=== PATIENT | female | born 1985 | race Caucasian/White ===

== ENCOUNTER 2019-07-19 08:23 | Outpatient (CLI) | payer MEDICAID ==
[2019-07-19 09:39] LABS: HGB - HEMOGLOBIN 10.6 g/dL (12.0-16.0); MEAN CORPUSCULAR HGB CONC 31.6 g/dL (32.0-36.0); MEAN CORPUSCULAR VOLUME 88.4 fL (81.0-99.0); MEAN PLATELET VOLUME 8.6 fL (7.9-10.8); RED BLOOD COUNT 3.79 10^6/uL (4.20-5.40); RED CELL DISTRIBUTION WIDTH 13.9 % (12.0-15.0)
== END 2019-07-19 08:24 | disposition home or self-care (01) ==
LOC: LAB 08:23
PROVIDERS: ATTEND Obstetrics & Gynecology
DX: Z36.89 Encounter for other specified antenatal screening (principal)
CPT/HCPCS: 36415; 82950; 85027

== ENCOUNTER 2019-09-10 08:00 | Outpatient (CLI) | payer MEDICAID ==
[2019-09-10 21:39] LABS: TRICHOMONAS VAGINALIS DNA NEGATIVE (NEGATIVE)
== END 2019-09-10 08:01 | disposition home or self-care (01) ==
LOC: LAB.R 08:00
PROVIDERS: ATTEND Obstetrics & Gynecology
DX: Z36.85 Encounter for antenatal screening for Streptococcus B (principal); Z11.3 Encounter for screening for infections with a predominantly sexual mode of transmission
CPT/HCPCS: 87491; 87591; 87661; 87797

== ENCOUNTER 2019-09-13 19:52 | Outpatient (CLI) | payer MEDICAID ==
[2019-09-13 21:17] VITALS: BP 114/64
[2019-09-13 21:24] LABS: RUPTURE OF MEMBRANES PLUS NEGATIVE (NEGATIVE)
--- NOTE | 2019-09-14 02:50 | PROVIDER PROGRESS NOTE ---
- HPI Chief Complaint: Other Current : Current EDU 10/13/19 Gestation 35 Weeks and 5 Days 1 Para 0 Vital Signs Temperature 97.7 F 09/13/19 20:03 Heart Rate 94 09/13/19 20:03 Respiratory Rate 18 09/13/19 20:03 Blood Pressure 114/64 09/13/19 20:03 O2 Saturation 100 09/13/19 20:03 Temperature 97.7 F 09/13/19 20:03 Heart Rate 94 09/13/19 20:03 Respiratory Rate 18 09/13/19 20:03 Blood Pressure 114/64 09/13/19 20:03 O2 Saturation 100 09/13/19 20:03 - Exam GEN: NAD CV: RR RESP: nml effort ABD: gravid, S&NT amnisure neg - Procedures OB Procedure Performed: Other (extended monitoring) Diagnosis/Indication for NST: Other (Patient is a 34 yo at 35w5d with abdominal tenderness Patient had been resting in bed on her side. Her 85# dog had jumped into bed next to her and allowed himself to fall on her abdomen. She was having abdominal pain and vaginal pressure and presented to assessment. No LOF other than one spot of fluid. No bleeding. Has been having mild intermittent ctx at baseline. Review of us reports indicate placenta is posterior) NST Procedure: NST Procedure Start Date 09/13/19 Start Time 20:06 Stop Time 20:44 Vibroacoustic Stimulation Used No Patient States Movement Yes EFM 120 mod freda 15x15 accels no decels TOCO: mild intermittent ctx CAT I tracing Service Date of procedure: 09/13/19 Procedure Details: Patient was observed in triage for over an hour Cat I tracing No continuing abdominal pain Neg amnisure Mott with mild intermittent contractions that diminished with frequency and intensity Reviewed risks of placental abruption (noting posterior placement of placenta) Minimal concern with mechanism of injury, clinical exam Cat I tracing Patient discharged to home with warning signs reviewed DOS: 09/13/2019 Final DX: mild blow to abdomen in , abdominal pain in
== END 2019-09-13 22:15 | disposition home or self-care (01) ==
LOC: WFO 19:52 → FBP 19:58 → WFO 22:15
PROVIDERS: ATTEND Obstetrics & Gynecology
DX: O99.89 Other specified diseases and conditions complicating pregnancy, childbirth and the puerperium (principal); R10.9 Unspecified abdominal pain; Z3A.35 35 weeks gestation of pregnancy
CPT/HCPCS: 59025; 84112

== ENCOUNTER 2019-10-05 16:14 | Outpatient (CLI) | payer MEDICAID ==
[2019-10-05 16:45] LABS: BASOPHILS % (AUTO) 0.2 %; EOSINOPHILS # (AUTO) 0.1 10^3/uL (0.0-0.7); EOSINOPHILS % (AUTO) 1.2 %; HGB - HEMOGLOBIN 11.3 g/dL (12.0-16.0); LYMPHOCYTES # (AUTO) 1.6 10^3/uL (1.5-3.5); LYMPHOCYTES % (AUTO) 19.6 %; MEAN CORPUSCULAR HEMOGLOBIN 27.4 pg (27.0-31.0); MEAN CORPUSCULAR HGB CONC 31.8 g/dL (32.0-36.0); MEAN CORPUSCULAR VOLUME 86.2 fL (81.0-99.0); MONOCYTES # (AUTO) 0.7 10^3/uL (0.0-1.0); MONOCYTES % (AUTO) 7.8 %; NEUTROPHILS # (AUTO) 5.7 10^3/uL (1.5-6.6); NEUTROPHILS % (AUTO) 68.9 %; PLT - PLATELET COUNT 163 10^3/uL (130-450); RED BLOOD COUNT 4.12 10^6/uL (4.20-5.40); RED CELL DISTRIBUTION WIDTH 14.5 % (12.0-15.0); WHITE BLOOD COUNT 8.3 x10^3/uL (4.8-10.8)
[2019-10-05 16:47] LABS: HCG UR QUAL POSITIVE
== END 2019-10-05 16:15 | disposition home or self-care (01) ==
LOC: LAB 16:14
PROVIDERS: ATTEND Obstetrics & Gynecology
DX: Z01.812 Encounter for preprocedural laboratory examination (principal); O32.1XX0 Maternal care for breech presentation, not applicable or unspecified; Z3A.00 Weeks of gestation of pregnancy not specified
CPT/HCPCS: 36415; 81025; 85025

== ENCOUNTER 2019-10-06 07:10 | Inpatient (IN) | payer MEDICAID ==
--- NOTE | 2019-10-01 10:59 | HISTORY & PHYSICAL EXAMINATION ---
Admit History - Visit Reason Visit Reason: Other (Scheduled CS for breech presentation) - : 1 Parity: 0 Care: positive: [facility] Risk/History: positive: None Complications This : positive: None - Mother's Labs Mother's Blood Type: positive: A Mother's RH: positive: Positive GBS: positive: Group B Step Negative (Dating: LMP 01/06/19--> JUDI 10/13/19 US performed 03/05/2019 at 7w6d--> JUDI 10/13/09 GIrl--> possibly Gila A pos/Rubella imm NT wnl, cfDNA wnl, AFP not completed FAS performed at [facility]. Posterior placenta, 3VC, nl Oswaldo TVCL 4.1, normal anatomy Influenza vaccine complete TDaP given Glucola 123 Breast pump Rx given HSV: denies; taking valacyclovir for shingles GBS neg) Review of Systems - Other Findings Other Findings: As per HPI otherwise remaining systems are negative. Physical - Abdominal Exam Vital Signs: Patient Profile: 34 Years Old Female Height: 62 inches (157.48 cm) Weight: 203 pounds BMI: 37.26 BP sittin / 66 Cuff size: regular - Presentation Presentation: positive: Breech Plan for Labor - Plan For Labor Plan for Labor: Pre op H&P for scheduled CS on 10/06/19 34-year-old G1 at 39 and 0 weeks EGA with JUDI of 10/13/2019 here for scheduled C- section for persistent breech presentation. Patient has declined ECV Wants to proceed with primary for breech Written informed consent was obtained on 09/30/2019 Reviewed risks/benefits/alternatives to Risks include, but are not limited to, bleeding, infection, damage to nearby tissue and organs. On average, EBL of up to 1 liter is considered within normal limits for CS. Risks of blood transfusion include infection Risk of HIV 1/2million nationwide Risk of Hepatitis 1/1 million Risks of transfusion reaction Infection risk moderate given clean/contaminated nature of procedure and IV antibiotics will be given. Damage to nearby tissue and organs including bladder, bowel, ureters, blood vessels, nerves, and fetus Damage may be noted intra-op and may be delayed until after the procedure is complete Reviewed management of complications and efforts to avoid such outcomes but reviewed that they may occur despite our best efforts A positive/Rub imm Cefazolin 2g IV OCTOR Inpatient care
[2019-10-06] MEDS ORDERED: LACTATED RINGERS 1,000 ML IV ONE ×2 (08:47→10:37)
[2019-10-06] MEDS ORDERED: ceFAZolin 2 GM in SODIUM CHLORIDE 0.9% 100ML 100 ML IV ONE (09:05)
[2019-10-06 09:28] LABS: BASOPHILS % (AUTO) 0.4 %; EOSINOPHILS # (AUTO) 0.1 10^3/uL (0.0-0.7); EOSINOPHILS % (AUTO) 0.8 %; HGB - HEMOGLOBIN 11.3 g/dL (12.0-16.0); LYMPHOCYTES # (AUTO) 1.4 10^3/uL (1.5-3.5); LYMPHOCYTES % (AUTO) 19.8 %; MEAN CORPUSCULAR HEMOGLOBIN 28.1 pg (27.0-31.0); MEAN CORPUSCULAR HGB CONC 33.1 g/dL (32.0-36.0); MEAN CORPUSCULAR VOLUME 84.8 fL (81.0-99.0); MEAN PLATELET VOLUME 9.8 fL (7.9-10.8); MONOCYTES # (AUTO) 0.6 10^3/uL (0.0-1.0); MONOCYTES % (AUTO) 8.2 %; NEUTROPHILS % (AUTO) 68.7 %; PLT - PLATELET COUNT 162 10^3/uL (130-450); RED BLOOD COUNT 4.02 10^6/uL (4.20-5.40); RED CELL DISTRIBUTION WIDTH 14.5 % (12.0-15.0); WHITE BLOOD COUNT 7.2 x10^3/uL (4.8-10.8)
[2019-10-06] MEDS ORDERED: ACETAMINOPHEN 1,000 MG/100 ML 100 ML IV SCH (09:29)
--- NOTE | 2019-10-06 09:49 | ANESTHESIA ---
Pre-Anesthesia VS, & Labs - Diagnosis breech - Procedure section Height 5 ft 2 in Weight (kg) 91.626 kg - NPO >8 hours - Is Patient ?: Yes - Lab Results Current Lab Results: Laboratory Tests 10/06/19 08:15: WBC 7.2, RBC 4.02 L, Hgb 11.3 L, Hct 34.1 L, MCV 84.8, MCH 28.1, MCHC 33.1, RDW 14.5, Plt Count 162, MPV 9.8, Neut # (Auto) 5.0, Lymph # (Auto) 1.4 L, Harmon # (Auto) 0.6, Eos # (Auto) 0.1, Baso # (Auto) 0.0, Absolute Nucleated RBC 0.00, Nucleated RBC % 0.0 Fish Bones: 10/06/19 08:15 Home Medications and Allergies Active Medications Acetaminophen (Ofirmev) 100 mls @ 400 mls/hr IV ONCE CLAUDETTE Stop: 10/06/19 11:00 Allergies/Adverse Reactions: Allergies Allergy/AdvReac Type Severity Reaction Status Date / Time crab AdvReac Nausea Verified 10/06/19 09:08 mushroom AdvReac Nausea Verified 10/06/19 09:08 onion AdvReac Nausea Verified 10/06/19 09:08 Anes History & Medical History - Anesthetic History Anesthesia Complications: reports: No previous complications - Medical History Cardiovascular: reports: None Pulmonary: reports: None Gastrointestinal: reports: GERD Neuro: reports: None Musculoskeletal: reports: None Blood Disorders: reports: None Smoking Status: Never smoker - Obstetrical History : 1 Parity: 0 Events: positive: None Complications: positive: None Exam General: Alert Plan Anesthesia Type: Spinal Consent for Procedure(s) Verified and Reviewed: Yes Code Status: Attempt Resuscitation ASA classification: 2-Mild systemic disease Is this case an emergency?: No
[2019-10-06] MEDS ORDERED: SODIUM CHLORIDE 0.9% 100ML 100 ML IV ONE (09:52)
[2019-10-06] MEDS ORDERED: CITRIC ACID/SODIUM CITRATE 15 ML UDC PO SCH (10:16)
[2019-10-06] MEDS ORDERED: CITRIC ACID/SODIUM CITRATE 15 ML UDC PO ONE (10:17)
[2019-10-06] MEDS: LACTATED RINGERS 1,000 ML IV ONE (10:37)
[2019-10-06] MEDS ORDERED: ONDANSETRON 4 MG/2 ML VIAL IVP ONE (10:37)
[2019-10-06] MEDS ORDERED: MORPHINE PF 5 MG/10 ML AMP EP ONE (10:37)
[2019-10-06] MEDS ORDERED: PHENYLEPHRINE 50 MG/5 ML VIAL IV ONE (10:37)
[2019-10-06] MEDS ORDERED: OXYTOCIN 10 UNIT/ML VIAL IV ONE (10:37)
[2019-10-06] MEDS ORDERED: ePHEDrine 50 MG/ML VIAL IVP ONE (10:37)
[2019-10-06] MEDS ORDERED: fentaNYL 100 MCG/2 ML VIAL IVP ONE (10:37)
[2019-10-06] MEDS ORDERED: DEXTROSE 5% 500 ML IV ONE (10:37)
[2019-10-06] MEDS ORDERED: WITCH HAZEL/GLYCERIN 1 PAD TOP PRN (11:58)
[2019-10-06] MEDS ORDERED: HYDROCORTISONE 1% CREAM 28 GM TUBE PR PRN (11:58)
[2019-10-06] MEDS ORDERED: SIMETHICONE CHEW 80 MG TABLET PO PRN (11:58)
[2019-10-06] MEDS ORDERED: ONDANSETRON ODT 4 MG TABLET TL PRN (11:58)
[2019-10-06] MEDS ORDERED: SODIUM CHLORIDE FLUSH 0.9% 10 ML SYRINGE IVP PRN (11:58)
[2019-10-06] MEDS ORDERED: OXYTOCIN/DEXTROSE 5 % 30 UNIT/500 ML BAG IV PRN (11:58)
[2019-10-06] MEDS ORDERED: oxyCODONE 5 MG TABLET PO PRN (11:58)
--- NOTE | 2019-10-06 11:58 | OPERATIVE REPORT ---
Operative Report - General Admit Date: 10/06/19 Procedure Date: 10/06/19 Planned Procedure: Primary LTCS Pre-Op Diagnosis: breech, 39w - Procedure Note Primary Surgeon: yanet Secondary Surgeon: jm Guevara CNM Anesthesia Technique: Spinal Pathology: cord blood to path IV Fluids (mL): 800 Estimated Blood Loss (mL): 400 Urine Output (mL): 175 Findings: Clear fluid. Liveborn female, 05/03. Normal utrerus, ovaries, tubes Complications: none
[2019-10-06] MEDS ORDERED: ACETAMINOPHEN 500 MG TABLET PO SCH (12:00)
[2019-10-06] MEDS ORDERED: ACETAMINOPHEN 1,000 MG/100 ML 100 ML IV ONE (14:05)
--- NOTE | 2019-10-06 15:34 | OPERATIVE REPORT ---
DATE OF SERVICE: 10/06/2019 Physician: Callie March MD PREOPERATIVE DIAGNOSES 1. Breech presentation. 2. Intrauterine at 39 weeks. POSTOPERATIVE DIAGNOSIS: Status post primary low transverse section. SURGERY: Primary low transverse section. SURGEON: Callie March MD LANDMEN: Ida Guevara CNM ANESTHESIA: Spinal. ESTIMATED BLOOD LOSS: 400 mL INTRAVENOUS FLUIDS: 800 mL of crystalloid. URINE OUTPUT: 175 mL, clear. COUNTS: Correct x2. COMPLICATIONS: None apparent. DISPOSITION: Stable to the recovery room. PROPHYLAXIS: Sequential compression devices to bilateral lower extremities. Ancef 2 grams IV prior to skin incision. SPECIMENS: Cord blood to Pathology. FINDINGS: All normal. Liveborn female, Apgars 9 at 1 minute and 9 at 5 minutes. Amniotic fluid was clear. Normal uterus, ovaries, and fallopian tubes. COUNSELING: Patient has breech presentation and she declined a version. She persisted in being balwinder ch today. She again declined version today, even under spinal with immediate induction to follow if there was success. DESCRIPTION OF PROCEDURE: Patient was brought to the operating room, where she was induced with spin al anesthesia. She was placed in left tilt and she was prepped and draped in the usual sterile fashi on. A scalpel was used to make a Pfannenstiel skin incision in the patient's belly folds. This was carried down to the fascia, which was nicked in the midline bilaterally. The fascial incision was ex tended sharply laterally. Kochers were placed on the inferior margin of the fascial incision and the fascia was bluntly and sharply dissected off of the underlying rectus. The same was performed super iorly. The peritoneum was sharply entered. The pyramidalis muscles were divided. A bladder retract or was placed and room was deemed to be adequate. A scalpel was used to make a transverse incision i n the lower uterine segment. This was not developed because of the lack of labor. The uterine cavit y was breeched with a finger. The uterine incision was then extended by applying pressure towards th e head and the feet. The surgeon's hand was placed in the uterine cavity and the buttocks were elevated and then delivered with assistance of fundal pressure. The fetus was delivered to the leve l of the scapula and then the heels spontaneously delivered. The anterior arm was delivered by sweep ing it across the chest. The baby was turned 180 degrees and the contralateral shoulder was similarl y delivered. The head immediately followed. There was no nuchal cord. The cord was left pulsating for 30 seconds. During this time, the baby was warmed, dried and stimulated. The umbilical cord was clamped x2 and cut and the baby was handed to the team in waiting. Cord blood was obtained for typi ng. The placenta was then delivered with external uterine massage. The uterine cavity was curetted and there was no return of membranes. The uterine incision was closed with a running layer of 0 Vicr yl. A second imbricating layer of 0 Vicryl was performed. Hemostasis was excellent in the uterus re ctus and fascia. The fascia was closed with a running layer of 0 Vicryl from end to end. Subcutaneo us tissues were irrigated and then reapproximated with interrupted sutures of 2-0 Vicryl. The skin w as reapproximated with a subcuticular suture of 4-0 Monocryl. Dermabond was then applied. Fundal ma ssage yielded a normal amount of blood and clot. TD: 10/06/2019 12:37
[2019-10-06] MEDS ORDERED: SODIUM CHLORIDE FLUSH 0.9% 10 ML SYRINGE IVP SCH (17:00)
[2019-10-06] MEDS: ACETAMINOPHEN 500 MG TABLET PO SCH (20:45)
[2019-10-06] MEDS: IBUPROFEN 600 MG TABLET PO SCH (20:46)
[2019-10-06] MEDS: DOCUSATE SODIUM 100 MG CAPSULE PO SCH (20:46)
[2019-10-07] MEDS: IBUPROFEN 600 MG TABLET PO SCH ×4 (02:47→21:18)
[2019-10-07] MEDS: ACETAMINOPHEN 500 MG TABLET PO SCH ×3 (04:38→21:18)
[2019-10-07 07:23] LABS: BASOPHILS % (AUTO) 0.2 %; EOSINOPHILS # (AUTO) 0.1 10^3/uL (0.0-0.7); EOSINOPHILS % (AUTO) 0.4 %; HGB - HEMOGLOBIN 10.3 g/dL (12.0-16.0); LYMPHOCYTES # (AUTO) 2.1 10^3/uL (1.5-3.5); LYMPHOCYTES % (AUTO) 14.9 %; MEAN CORPUSCULAR HEMOGLOBIN 26.9 pg (27.0-31.0); MEAN CORPUSCULAR HGB CONC 31.6 g/dL (32.0-36.0); MEAN CORPUSCULAR VOLUME 85.1 fL (81.0-99.0); MEAN PLATELET VOLUME 9.7 fL (7.9-10.8); MONOCYTES # (AUTO) 1.2 10^3/uL (0.0-1.0); MONOCYTES % (AUTO) 8.6 %; NEUTROPHILS # (AUTO) 10.3 10^3/uL (1.5-6.6); NEUTROPHILS % (AUTO) 74.2 %; PLT - PLATELET COUNT 180 10^3/uL (130-450); RED BLOOD COUNT 3.83 10^6/uL (4.20-5.40); RED CELL DISTRIBUTION WIDTH 14.7 % (12.0-15.0); WHITE BLOOD COUNT 13.9 x10^3/uL (4.8-10.8)
[2019-10-07] MEDS: DOCUSATE SODIUM 100 MG CAPSULE PO SCH ×2 (09:09→21:19)
[2019-10-07] MEDS ORDERED: IBUPROFEN 600 MG TABLET PO SCH (12:00)
--- NOTE | 2019-10-07 17:40 | PROVIDER PROGRESS NOTE ---
Subjective - Subjective Subjective: Seen at 0850 S: feeling surprisingly well. Eat, ambulate, urinate, breastfeed well. No heavy bleeding, no mood changes, no flatus yet. AVSS Alert, smiling, NAD Abd soft, nt/nd Fundus firm at umbilicus Incision c/d/i without erythema or induration LE without edema P1 POD #1 s/p scheduled for breech. Doing well; anticipate routine care. Objective - Vital Signs/Intake & Output Vital Signs: Vital Signs x48h Temp Pulse Resp BP Pulse Ox 10/07/19 16:00 98.8 F 84 18 106/54 L 97 10/07/19 12:28 98.2 F 85 18 111/62 98 Intake & Output: Intake & Output 10/04/19 10/05/19 10/06/19 10/07/19 23:59 23:59 23:59 23:59 Intake Total 1510 500 Output Total 725 2400 Balance 785 -1900 - Lab Results Fish Bones: 10/07/19 07:05 Other Labs: Lab Results x24hrs 10/07/19 Range/Units 07:05 WBC 13.9 H (4.8-10.8) x10^3/uL RBC 3.83 L (4.20-5.40) 10^6/uL Hgb 10.3 L (12.0-16.0) g/dL Hct 32.6 L (37.0-47.0) % MCV 85.1 (81.0-99.0) fL MCH 26.9 L (27.0-31.0) pg MCHC 31.6 L (32.0-36.0) g/dL RDW 14.7 (12.0-15.0) % Plt Count 180 (130-450) 10^3/uL MPV 9.7 (7.9-10.8) fL Neut # (Auto) 10.3 H (1.5-6.6) 10^3/uL Lymph # (Auto) 2.1 (1.5-3.5) 10^3/uL [place] # (Auto) 1.2 H (0.0-1.0) 10^3/uL Eos # (Auto) 0.1 (0.0-0.7) 10^3/uL Baso # (Auto) 0.0 (0.0-0.1) 10^3/uL Absolute Nucleated RBC 0.00 x10^3/uL Nucleated RBC % 0.0 /100WBC
[2019-10-08] MEDS: IBUPROFEN 600 MG TABLET PO SCH ×2 (03:25→10:42)
[2019-10-08] MEDS: ACETAMINOPHEN 500 MG TABLET PO SCH (05:30)
--- NOTE | 2019-10-08 08:06 | Discharge Plan ---
Discharge Plan Problem Reviewed?: Yes Disposition: Home, Self Care Condition: Good Diet: Regular Activity Restrictions: No driving on narcotics, no sex for 6w Shower Restrictions: No Driving Restrictions: Yes No Smoking: If you smoke, Please STOP! Call for help. Follow-up with: ROBIN SCHNEIDER MD, PHD [Physician No Access] - 1 Week
[2019-10-08] MEDS ORDERED: MAGNESIUM HYDROXIDE 2,400 MG/30 ML UDC PO PRN (08:08)
[2019-10-08 08:36] VITALS: BP 120/66
[2019-10-08] MEDS: DOCUSATE SODIUM 100 MG CAPSULE PO SCH (10:42)
--- NOTE | 2019-10-09 21:09 | DISCHARGE SUMMARY ---
Physician: Callie March MD DATE OF ADMISSION: 10/06/2019 DATE OF DISCHARGE: 10/08/2019 ADMISSION DIAGNOSES: 1. Intrauterine at 39 weeks. 2. Persistent breech presentation. DISCHARGE DIAGNOSIS: Status post primary section. OPERATIONS AND PROCEDURES: 10/06/2019, uncomplicated primary low transverse section. HOSPITAL COURSE: The patient was admitted for her scheduled section for breech. She declin ed to attempt external cephalic version with immediate induction of labor. Her surgery was uncomplic ated and her postoperative course was as well. By postoperative day 2, she was eating, ambulating, u rinating and without difficulties. Her pain was under good control and her bleeding wa s not heavy. She was afebrile with normal vital signs. She was alert and pleasant, in no apparent d istress. Abdomen: Soft, nontender, nondistended. Fundus firm, nontender and 1 cm below the umbilic us. Incision clean, dry and intact without erythema or induration. There was trace lower extremity edema bilaterally. DISCHARGE DISPOSITION: Home. CONDITION: Good. FOLLOWUP: Follow up in 1 week at [facility] for an incision check. PRESCRIPTIONS: 1. Ibuprofen p.r.n. pain. 2. Oxycodone p.r.n. severe pain, #20, no refills. 3. Colace p.r.n. to soften stool. 4. Continue vitamins. TD: 10/09/2019 16:51
== END 2019-10-08 12:15 | disposition home or self-care (01) | DRG 787 ==
LOC: FBP 07:10
PROVIDERS: ADMIT Obstetrics & Gynecology; ATTEND Obstetrics & Gynecology
PROC: 10D00Z1 Extraction of Products of Conception, Low, Open Approach (ICD-10-PCS; principal; 2019-10-06 09:30)
DX: O32.1XX0 Maternal care for breech presentation, not applicable or unspecified (principal); O98.52 Other viral diseases complicating childbirth; B02.9 Zoster without complications; Z37.0 Single live birth; Z3A.39 39 weeks gestation of pregnancy
CPT/HCPCS: 36415; 85025; 86850; 86900; 86901; A9270; J0131; J3490; J7120

== ENCOUNTER 2019-10-14 14:41 | Outpatient (CLI) | payer MEDICAID | END 2019-10-14 14:42 | disposition home or self-care (01) | LOC: LAB 14:41 | PROVIDERS: ATTEND Obstetrics & Gynecology | DX: B02.9 Zoster without complications (principal) | CPT/HCPCS: 36415; 86787 ==

== ENCOUNTER 2020-03-08 12:31 | Outpatient (CLI) | payer MEDICAID ==
[2020-03-08 15:53] LABS: BASOPHILS % (AUTO) 0.6 %; EOSINOPHILS # (AUTO) 0.1 10^3/uL (0.0-0.7); EOSINOPHILS % (AUTO) 2.4 %; HGB - HEMOGLOBIN 12.8 g/dL (12.0-16.0); LYMPHOCYTES # (AUTO) 1.6 10^3/uL (1.5-3.5); LYMPHOCYTES % (AUTO) 32.3 %; MEAN CORPUSCULAR VOLUME 84.4 fL (81.0-99.0); MEAN PLATELET VOLUME 9.8 fL (7.9-10.8); MONOCYTES # (AUTO) 0.3 10^3/uL (0.0-1.0); MONOCYTES % (AUTO) 5.6 %; NEUTROPHILS # (AUTO) 2.9 10^3/uL (1.5-6.6); NEUTROPHILS % (AUTO) 58.9 %; PLT - PLATELET COUNT 266 10^3/uL (130-450); RED BLOOD COUNT 4.74 10^6/uL (4.20-5.40)
[2020-03-08 16:26] LABS: ALBUMIN 4.2 g/dL (3.2-5.5); ALBUMIN/GLOBULIN RATIO 1.2 (1.0-2.2); ALKALINE PHOSPHATASE 67 IU/L (42-121); ALT ALANINE AMINOTRANSFERASE 14 IU/L (10-60); AMYLASE 20 U/L (28-100); AST ASPARTATE AMINOTRANSFERASE 15 IU/L (10-42); BILIRUBIN,TOTAL 0.3 mg/dL (0.2-1.0); BUN - BLOOD UREA NITROGEN 14 mg/dL (6-20); CALCIUM 9.5 mg/dL (8.5-10.3); CARBON DIOXIDE - CO2 27 mmol/L (21-32); CHLORIDE 105 mmol/L (101-111); CHOL/HDL RATIO 3.8 (<4.4); CHOLESTEROL 222 mg/dL; CREATININE 0.7 mg/dL (0.4-1.0); GLUCOSE 91 mg/dL (70-100); HDL CHOLESTEROL 59 mg/dL; LDL CHOLESTEROL,CALCULATED 146 mg/dL; LDL/HDL RATIO 2.5 (<4.4); LIPASE 27 U/L (22-51); SODIUM 139 mmol/L (135-145); TOTAL PROTEIN 7.7 g/dL (6.7-8.2); VLDL CHOLESTEROL 17 mg/dL
== END 2020-03-08 12:32 | disposition home or self-care (01) ==
LOC: LAB.S 12:31
PROVIDERS: ATTEND Physician Assistant
DX: Z39.2 Encounter for routine postpartum follow-up (principal); R10.9 Unspecified abdominal pain; Z79.899 Other long term (current) drug therapy; G89.29 Other chronic pain; Z20.828 Contact with and (suspected) exposure to other viral communicable diseases
CPT/HCPCS: 36415; 80053; 80061; 82150; 83690; 83721; 84443; 85025; 86769

== ENCOUNTER 2020-06-23 15:37 | Outpatient (CLI) | payer MEDICAID | END 2020-06-23 15:38 | disposition home or self-care (01) | LOC: COV 15:37 | PROVIDERS: ATTEND Family Medicine | DX: R06.02 Shortness of breath (principal); M79.10 Myalgia, unspecified site; R53.83 Other fatigue; J02.9 Acute pharyngitis, unspecified; R19.7 Diarrhea, unspecified; R09.81 Nasal congestion; R11.2 Nausea with vomiting, unspecified; Z20.828 Contact with and (suspected) exposure to other viral communicable diseases ==